=== PATIENT | male | born 1985 | race Caucasian/White ===

== ENCOUNTER 2016-10-22 10:19 | Emergency (ER) | payer OTHER ==
[2016-10-22 10:24] VITALS: TEMP 97.8
[2016-10-22] MEDS ORDERED: AMOXIC-POT CLAV 875-125MG 1 EACH TAB PO STA (11:24)
[2016-10-22] MEDS ORDERED: predniSONE 20 MG TAB PO STA (11:24)
--- NOTE | 2016-10-22 11:24 | ED ---
General Adult HPI - General Chief complaint: ENT Stated complaint: poss strep throat Time Seen by Provider: 10/22/16 10:32 Source: patient, RN notes reviewed, old records reviewed Mode of arrival: ambulatory Limitations: no limitations - History of Present Illness Initial comments: This is a 31-year-old male the ER for evaluation. The patient is a for evaluation of sore throat. Patient has no medical history no travel history takes no medications. He states he has had fever for 2 days worsening sore throat. No other complaints no shortness of breath or chest pain. Patient is able to swallow and drink and eat. Patient states this pain tobacco of just getting worse, is help with Motrin but states he feels like the swelling is getting worse at this time. No other complaints - Related Data Home Medications Medication Instructions Recorded Confirmed HYDROcodone/APAP 7.5-325MG [[place] 1 tab PO TID 06/20/15 06/22/15 7.5-325] Stool [place] 1 tab PO DAILY PRN 06/20/15 06/20/15 Allergies Allergy/AdvReac Type Severity Reaction Status Date / Time No Known Allergies Allergy Verified 10/22/16 10:24 Review of Systems ROS Statement: Those systems with pertinent positive or pertinent negative responses have been documented in the HPI. ROS Other: All systems not noted in ROS Statement are negative. Past Medical History Past Medical History: GERD/Reflux Additional Past Medical History / Comment(s): See Dr Sharma H&P History of Any Multi-Drug Resistant Organisms: None Reported Past Surgical History: Hernia Repair, Orthopedic Surgery Additional Past Surgical History / Comment(s): loop recorder insertion and removal, rt knee arthroscopy, reconstructive surgery left foot and ankle Past Anesthesia/Blood Transfusion Reactions: No Reported Reaction Past Psychological History: No Psychological Hx Reported Smoking Status: Former smoker Past Alcohol Use History: Occasional Past Drug Use History: Marijuana - Past Family History Mother Family Medical History: No Reported History General Exam Limitations: no limitations General appearance: alert, in no apparent distress Head exam: Present: atraumatic, normocephalic, normal inspection Eye exam: Present: normal appearance, PERRL, EOMI. Absent: scleral icterus, conjunctival injection, periorbital swelling ENT exam: Present: normal exam, other (Bilateral tonsillar erythema, edema and exudates) Neck exam: Present: normal inspection. Absent: tenderness, meningismus, lymphadenopathy Respiratory exam: Present: normal lung sounds bilaterally. Absent: respiratory distress, wheezes, rales, rhonchi, stridor Cardiovascular Exam: Present: regular rate, normal rhythm, normal heart sounds. Absent: systolic murmur, diastolic murmur, rubs, gallop, clicks GI/Abdominal exam: Present: soft, normal bowel sounds. Absent: distended, tenderness, guarding, rebound, rigid Extremities exam: Present: normal inspection, full ROM, normal capillary refill. Absent: tenderness, pedal edema, joint swelling, calf tenderness Back exam: Present: normal inspection Neurological exam: Present: alert, oriented X3, CN II-XII intact Psychiatric exam: Present: normal affect, normal mood Skin exam: Present: warm, dry, intact, normal color. Absent: rash Course Vital Signs 10/22/16 10:21 Temperature 97.8 F Pulse Rate 96 Respiratory 18 Rate Blood Pressure 146/84 O2 Sat by Pulse 98 Oximetry - Reevaluation(s) Reevaluation #1: 10/22/16 11:23 Patient no acute distress, able to swallow without difficulty Medical Decision Making - Medical Decision Making By year for evaluation strep throat, positive strep exam, positive fever sore throat. Positive exudates and pharyngitis. Patient will be discharged on appropriate antibiotics. Disposition Clinical Impression: Streptococcal sore throat Disposition: HOME SELF-CARE Condition: Good Instructions: Strep Throat (ED) Referrals: None,Stated [Primary Care Provider] - 1-2 days
[2016-10-22 11:40] VITALS: BP 140/63; PULSE 74; RESP 16
== END 2016-10-22 11:40 | disposition home or self-care (01) ==
LOC: EC 10:19
DX: J02.0 Streptococcal pharyngitis (principal); Z87.891 Personal history of nicotine dependence; Z79.891 Long term (current) use of opiate analgesic
CPT/HCPCS: 99283; J7512

== ENCOUNTER 2020-02-20 12:08 | Emergency (ER) | payer OTHER ==
[2020-02-20 12:12] VITALS: BP 189/85; PULSE 83; RESP 18; TEMP 98.5
--- NOTE | 2020-02-20 12:37 | ED ---
Recheck HPI - General Chief Complaint: Recheck/Abnormal Lab/Rx Stated Complaint: Vomiting, needs covid test Time Seen by Provider: 02/20/20 12:13 Source: patient, RN notes reviewed Mode of arrival: ambulatory Limitations: no limitations - History of Present Illness Initial Comments: Patient is a pleasant 34-year-old male presenting to the emergency department requesting test for coronavirus. Patient states he was chewing tobacco 2 nights ago and did not spit for an hour. Patient states following this she did vomit twice. Patient states he has had similar episodes previously with chewing tobacco. Patient states he feels fine other than that and has no other complaints. Patient has no nausea. No fever. No dyspnea or cough. No abdominal pain. Patient states he was sent by work to have testing and that's only reason that he is here. - Related Data Home Medications Medication Instructions Recorded Confirmed Ibuprofen [Motrin] 600 mg PO Q8HR PRN 10/22/16 10/22/16 Previous Rx's Medication Instructions Recorded Amoxicillin/Potassium Clav 1 tab PO Q12HR #20 tab 10/22/16 [Augmentin 875-125 Tablet] Allergies Allergy/AdvReac Type Severity Reaction Status Date / Time No Known Allergies Allergy Verified 02/20/20 12:10 Review of Systems ROS Statement: Those systems with pertinent positive or pertinent negative responses have been documented in the HPI. ROS Other: All systems not noted in ROS Statement are negative. Constitutional: Denies: fever, chills Eyes: Denies: eye pain ENT: Denies: ear pain Respiratory: Denies: cough, dyspnea Cardiovascular: Denies: chest pain Endocrine: Denies: fatigue Gastrointestinal: Reports: as per HPI. Denies: abdominal pain, nausea Genitourinary: Denies: dysuria Musculoskeletal: Denies: back pain Skin: Denies: rash Neurological: Denies: weakness Past Medical History Past Medical History: GERD/Reflux Additional Past Medical History / Comment(s): See Dr Sharma H&P History of Any Multi-Drug Resistant Organisms: None Reported Past Surgical History: Hernia Repair, Orthopedic Surgery Additional Past Surgical History / Comment(s): loop recorder insertion and removal, rt knee arthroscopy, reconstructive surgery left foot and ankle Past Anesthesia/Blood Transfusion Reactions: No Reported Reaction Past Psychological History: No Psychological Hx Reported Smoking Status: Never smoker Past Alcohol Use History: Occasional Past Drug Use History: Marijuana - Past Family History Mother Family Medical History: No Reported History General Exam Limitations: no limitations General appearance: alert, in no apparent distress Head exam: Present: normocephalic Eye exam: Present: normal appearance Neck exam: Present: normal inspection Respiratory exam: Present: normal lung sounds bilaterally Cardiovascular Exam: Present: regular rate, normal rhythm GI/Abdominal exam: Present: soft. Absent: tenderness Extremities exam: Present: normal inspection Neurological exam: Present: alert Psychiatric exam: Present: normal affect, normal mood Skin exam: Present: normal color. Absent: rash Course Vital Signs 02/20/20 12:10 Temperature 98.5 F Pulse Rate 83 Respiratory 18 Rate Blood Pressure 189/85 O2 Sat by Pulse 98 Oximetry Medical Decision Making - Medical Decision Making Patient is made aware that I agree with low risk of [place] virus. Patient is made aware that testing results will take 24-48 hours and that he should self quarantined until a time. Disposition Clinical Impression: Vomiting Disposition: HOME SELF-CARE Condition: Stable Instructions (If sedation given, give patient instructions): Acute Nausea and Vomiting (ED) Additional Instructions: Test results will be available in approximately 24-48 hours. Please self quarantined until results are available. Return for fevers, difficulty breathing, uncontrolled vomiting or abdominal pain, worsening symptoms or other concerns. Is patient prescribed a controlled substance at d/c from ED?: No Referrals: Jacquelin Connors MD [REFERRING] - 1-2 days Time of Disposition: 12:36
== END 2020-02-20 12:41 | disposition home or self-care (01) ==
LOC: EC 12:08
DX: R11.10 Vomiting, unspecified (principal); Z20.828 Contact with and (suspected) exposure to other viral communicable diseases
CPT/HCPCS: 99283; U0003

== ENCOUNTER 2023-07-22 12:40 | Emergency (ER) | payer OTHER ==
[2023-07-22] MEDS ORDERED: KETOROLAC 15 MG/ML 1 ML VIAL IM STA (13:13)
[2023-07-22] MEDS ORDERED: LIDOCAINE 4% PATCH TOPICAL ONE (13:14)
--- NOTE | 2023-07-22 13:14 | ED ---
Extremity Problem HPI - General Chief complaint: Extremity Problem,Nontraumatic Stated complaint: Right Knee Pain Time Seen by Provider: 07/22/23 13:10 Source: patient Mode of arrival: ambulatory Limitations: no limitations - History of Present Illness Initial comments: The patient is a gestational gentleman is otherwise presents emergency room complaints of pain as well as right knee. Patient stateshe injured his back 10 years ago that required surgery. He states that every once in a while if he moves or steps abnormally because his pain swelling and popping and catching of his knee. States that last happened about a year ago and after a week, it Finally went away. He has not seen an asset protection specialist in 10 years. He denies any IV drug use. Denies any fevers. Pain is worse with certain movements and feels as though its clicking. MD Complaint: extremity pain - Related Data Home Medications Medication Instructions Recorded Confirmed Ibuprofen [Motrin] 600 mg PO Q8HR PRN 10/22/16 10/22/16 Previous Rx's Medication Instructions Recorded Amoxicillin/Potassium Clav 1 tab PO Q12HR #20 tab 10/22/16 [Augmentin 875-125 Tablet] HYDROcodone/APAP 5-325MG [[place] 1 tab PO Q6HR PRN 3 Days #12 tab 07/22/23 5-325] Naproxen [Naprosyn] 375 mg PO Q12HR 14 Days #28 tablet 07/22/23 Allergies Allergy/AdvReac Type Severity Reaction Status Date / Time morphine Allergy Rash/Hives Verified 07/22/23 12:42 Review of Systems ROS Statement: Those systems with pertinent positive or pertinent negative responses have been documented in the HPI. ROS Other: All systems not noted in ROS Statement are negative. Past Medical History Past Medical History: GERD/Reflux Additional Past Medical History / Comment(s): See Dr Sharma H&P History of Any Multi-Drug Resistant Organisms: None Reported Past Surgical History: Hernia Repair, Orthopedic Surgery Additional Past Surgical History / Comment(s): loop recorder insertion and removal, rt knee arthroscopy, reconstructive surgery left foot and ankle Past Anesthesia/Blood Transfusion Reactions: No Reported Reaction Past Psychological History: No Psychological Hx Reported Smoking Status: Never smoker Past Alcohol Use History: Occasional Past Drug Use History: Marijuana - Past Family History Mother Family Medical History: No Reported History General Exam Limitations: no limitations General appearance: alert, in no apparent distress Eye exam: Present: PERRL Extremities exam: Present: full ROM, tenderness, joint swelling, other (pain over the anterior right knee. suprapatellar effusion. no erythema or warmth. no signs of a septic joint or compartment syndrome. no laxity of the ligaments.) Back exam: Present: full ROM Neurological exam: Present: alert, oriented X3, CN II-XII intact Psychiatric exam: Present: normal affect, normal mood Skin exam: Present: warm, dry, intact, normal color Course Vital Signs 07/22/23 07/22/23 12:42 16:00 Temperature 98 F Pulse Rate 89 86 Respiratory 16 18 Rate Blood Pressure 167/102 150/86 O2 Sat by Pulse 100 Oximetry - Reevaluation(s) Reevaluation #1: 07/22/23 17:07 patient was given toradol in the ed because he drove to the emergency room. Discussed imaging results which showed a possible fracture seen on the xray. A CT of the knee was ordered which showed no fracture, just the small effusion. i discussed management of this with the patient including the rest, ice elevation and compression. i discussed follow up with ortho for outpatient MRI for possible meniscus injury. he understands and agrees to treatment and discharge plan. he understands he is not to drive while taking pain medication. I discussed symptoms, workup and dispo with attending ED Physician, Dr Patrick today. Medical Decision Making - Medical Decision Making Was pt. sent in by a medical professional or institution (, PA, LUMBER PILER OPERATOR, urgent care, hospital, or [facility]...) When possible be specific @ -[No] Did you speak to anyone other than the patient for history (EMS, parent, family, police, friend...)? What history was obtained from this source @ -[No] Did you review nursing and triage notes (agree or disagree)? Why? @ -[I reviewed and agree with nursing and triage notes] Were old charts reviewed (outside hosp., previous admission, EMS record, old EKG, old radiological studies, urgent care reports/EKG's, [facility] records)? Report findings @ -[No old charts were reviewed] Differential Diagnosis (chest pain, altered mental status, abdominal pain women, abdominal pain men, vaginal bleeding, weakness, fever, dyspnea, syncope, headache, dizziness, GI bleed, back pain, seizure, CVA, palpatations, mental health, musculoskeletal)? @ -Sprain right knee, patellar dislocation, meniscus injury, ligamentous injury EKG interpreted by me (3pts min.). @ -[As above] X-rays interpreted by me (1pt min.). @ -. X-rays negative for any dislocation however there is a small effusion seen and a questionable tibial plateau fracture. Further imaging will be done to evaluate CT interpreted by me (1pt min.). @ -CT of the knee is negative for any tibial plateau fracture there is a small suprapatellar effusion seen. No other acute changes U/S interpreted by me (1pt. min.). @ -[None done] What testing was considered but not performed or refused? (CT, X-rays, U/S, labs)? Why? @ -[None] What meds were considered but not given or refused? Why? @ -[narcotic pain medication as patient is driving Did you discuss the management of the patient with other professionals (professionals i.e. , PA, LUMBER PILER OPERATOR, lab, RT, psych nurse, director of social work, greenhouse laborer, teacher, human resources officer, counter caser)? Give summary @ -[No] Was smoking cessation discussed for >3mins.? @ -[No] Was critical care preformed (if so, how long)? @ -[No] Were there social determinants of health that impacted care today? How? (Homelessness, low income, unemployed, alcoholism, drug addiction, transportation, low edu. Level, literacy, decrease access to med. care, group home, rehab)? @ -[No] Was there de-escalation of care discussed even if they declined (Discuss DNR or withdrawal of care, Hospice)? DNR status @ -[No] What co-morbidities impacted this encounter? (DM, HTN, Smoking, COPD, CAD, Cancer, CVA, ARF, Chemo, Hep., AIDS, mental health diagnosis, sleep apnea, morbid obesity)? @ -[None] Was patient admitted / discharged? Hospital course, mention meds given and route, prescriptions, significant lab abnormalities, going to OR and other pertinent info. @ -[the patient is stable to follow up as an outpatient with asset protection specialist. i discussed management including ice, compression and pain meds as needed. he understands he is not to drive while taking pain medication. Undiagnosed new problem with uncertain prognosis? @ -[No] Drug Therapy requiring intensive monitoring for toxicity (Heparin, Nitro, Insulin, Cardizem)? @ -[No] Were any procedures done? @ -[No] Diagnosis/symptom? @ -Right knee pain, suspected Meniscus injury of the right knee Acute, or Chronic, or Acute on Chronic? @ -[Acute Uncomplicated (without systemic symptoms) or Complicated (systemic symptoms)? @ -[default] Side effects of treatment? @ -[No] Exacerbation, Progression, or Severe Exacerbation? @ -[No] Poses a threat to life or bodily function? How? (Chest pain, [place], [place], pneumonia, PE, COPD, DKA, ARF, appy, cholecystitis, CVA, Diverticulitis, Homicidal, Suicidal, threat to staff... and all critical care pts) @ -[No] - Radiology Data Radiology results: report reviewed, image reviewed Disposition Clinical Impression: Right knee pain, Injury of meniscus of right knee Disposition: HOME SELF-CARE Condition: Good Instructions (If sedation given, give patient instructions): Meniscus Tear (ED), Knee Pain (ED), Swollen Knee Joint (ED) Additional Instructions: DO NOT DRIVE OR WORK WHILE TAKING PAIN MEDICATION REST, ICE AND ELEVATE THE KNEE. Prescriptions: Naproxen [Naprosyn] 375 mg PO Q12HR 14 Days #28 tablet HYDROcodone/APAP 5-325MG [[place] 5-325] 1 tab PO Q6HR PRN 3 Days #12 tab PRN Reason: Pain Is patient prescribed a controlled substance at d/c from ED?: Yes When asked, does pt state using other controlled substances?: No If prescribed controlled substance>3 days was MAPS reviewed?: Prescribed <3 Days If opioid is for acute pain is fill amount 7 days or less?: No Referrals: None,Stated [Primary Care Provider] - 1-2 days Time of Disposition: 17:16
--- NOTE | 2023-07-22 13:37 | XR ---
EXAMINATION TYPE: XR knee complete RT DATE OF EXAM: 07/22/2023 COMPARISON: NONE HISTORY: 38-year-old male pain and swelling after fall TECHNIQUE: 3 views FINDINGS: Prepatellar soft tissue swelling. No sizable joint effusion seen. Subtle lucency along the subchondral bone of the medial tibial plateau may be projectional artifact. Only seen on the oblique view. Minimal degenerative spurring medial compartment. No acute fracture, subluxation, dislocation o therwise seen. IMPRESSION: Prepatellar soft tissue swelling. Questionable subtle lucency medial tibial plateau. Unable to entire ly exclude a nondisplaced subchondral fracture of the medial tibial plateau versus projection artifac t.
--- NOTE | 2023-07-22 16:53 | CT ---
EXAMINATION TYPE: CT knee RT wo con DATE OF EXAM: 07/22/2023 COMPARISON: 07/22/2023 plain film HISTORY: EVALUATE FOR POSSIBLE FRACTURE. RT KNEE PAIN AFTER FALL CT DLP: 96.8 mGycm Automated exposure control for dose reduction was used. Contrast: None Technique: Axial images 3 mm thick sections. Reconstructed images in the coronal and sagittal planes. 3-D reconstructed images are reviewed. FINDINGS: No acute fractures are identified. No suspicious abnormality along the medial tibial plateau to corre late with the plain film findings is evident. There are couple of punctate calcifications within the posterior joint space. There is a small joint effusion present. Some increased soft tissue stranding is along the anterior l ateral suprapatellar region. Correlate with location of the patient's pain. Follow-up can be performed as clinically indicated. IMPRESSION: 1. NO DEFINITE ACUTE OSSEOUS ABNORMALITY TO SUGGEST UNDERLYING TIBIAL PLATEAU FRACTURE TO CORRELATE W ITH PLAIN FILM FINDINGS. 2. SMALL JOINT EFFUSION.
[2023-07-22 17:09] VITALS: BP 168/92; PULSE 80; RESP 18; TEMP 98.1
== END 2023-07-22 17:53 | disposition home or self-care (01) ==
LOC: EC 12:40
DX: S83.241A Other tear of medial meniscus, current injury, right knee, initial encounter (principal); F12.90 Cannabis use, unspecified, uncomplicated; Z88.5 Allergy status to narcotic agent; X58.XXXA Exposure to other specified factors, initial encounter
CPT/HCPCS: 73562; 73700; 99284; 96372; J1885

== ENCOUNTER 2024-03-23 09:03 | Emergency (ER) | payer SELFPAY ==
[2024-03-23 09:09] VITALS: RESP 18; TEMP 98
--- NOTE | 2024-03-23 09:12 | ED ---
Fall HPI - General Chief Complaint: Fall Stated Complaint: L Shoulder Injury Time Seen by Provider: 03/23/24 09:11 Source: patient, RN notes reviewed Mode of arrival: ambulatory - History of Present Illness Initial Comments: 39-year-old male presented to the ER with a chief complaint of a fall. Patient states he fell approximately 15 feet from his tree stand around 4 pm yesterday. He report he landed on his left shoulder and has been experiencing pain especially with motion since. He reports mild paresthesias to hand. Denies any limited range of motion. No neck pain. He denies any head injury, loss of consciousness or blood thinner use. Denies any rib pain, shortness of breath, chest pain, hip pain or other complaints. - Related Data Home Medications Medication Instructions Recorded Confirmed Ibuprofen [Motrin] 600 mg PO Q8HR PRN 10/22/16 10/22/16 Previous Rx's Medication Instructions Recorded Amoxicillin/Potassium Clav 1 tab PO Q12HR #20 tab 10/22/16 [Augmentin 875-125 Tablet] HYDROcodone/APAP 5-325MG [[place] 1 tab PO Q6HR PRN 3 Days #12 tab 07/22/23 5-325] Naproxen [Naprosyn] 375 mg PO Q12HR 14 Days #28 tablet 07/22/23 Cyclobenzaprine [Flexeril] 10 mg PO TID PRN #15 tab 03/23/24 Ibuprofen [Motrin] 600 mg PO Q8HR PRN #30 tab 03/23/24 Allergies Allergy/AdvReac Type Severity Reaction Status Date / Time morphine Allergy Rash/Hives Verified 03/23/24 09:09 Review of Systems ROS Statement: Those systems with pertinent positive or pertinent negative responses have been documented in the HPI. ROS Other: All systems not noted in ROS Statement are negative. Past Medical History Past Medical History: GERD/Reflux Additional Past Medical History / Comment(s): See Dr Sharma H&P History of Any Multi-Drug Resistant Organisms: None Reported Past Surgical History: Hernia Repair, Orthopedic Surgery Additional Past Surgical History / Comment(s): loop recorder insertion and removal, rt knee arthroscopy, reconstructive surgery left foot and ankle Past Anesthesia/Blood Transfusion Reactions: No Reported Reaction Past Psychological History: No Psychological Hx Reported Smoking Status: Never smoker Past Alcohol Use History: Occasional Past Drug Use History: Marijuana - Past Family History Mother Family Medical History: No Reported History General Exam - General Exam Comments Initial Comments: Visual Physical Exam Vital signs reviewed General: Well-appearing, nontoxic, no acute distress. Head: Normocephalic, atraumatic Eyes: PERRLA, EOMI ENT: Airway patent Chest: Nonlabored breathing Skin: No visual rash, normal skin tone Neuro: Alert and oriented 3 Musculoskeletal: No gross abnormalities Limitations: no limitations General appearance: alert, in no apparent distress Head exam: Present: atraumatic, normocephalic, normal inspection Neck exam: Present: normal inspection. Absent: tenderness, meningismus, lymphadenopathy Respiratory exam: Present: normal lung sounds bilaterally. Absent: respiratory distress, wheezes, rales, rhonchi, stridor Cardiovascular Exam: Present: regular rate, normal rhythm, normal heart sounds. Absent: systolic murmur, diastolic murmur, rubs, gallop, clicks Extremities exam: Present: tenderness (Left trapezius muscle. No overlying skin changes. Patient has full range of motion of shoulder. 2+ left radial pulse.) Course Vital Signs 03/23/24 03/23/24 03/23/24 09:06 10:01 10:52 Temperature 98 F 98 F Pulse Rate 56 L 62 Respiratory 18 18 18 Rate Blood Pressure 176/83 170/80 O2 Sat by Pulse 97 97 Oximetry Medical Decision Making - Medical Decision Making I performed the quick note portion of this chart. Electronically signed by Bea Walker PA-C Was pt. sent in by a medical professional or institution (DARIELA Sawyer, APPLIANCE INSTALLER, urgent care, hospital, or long-term...) When possible be specific @ -No Did you speak to anyone other than the patient for history (EMS, parent, family, police, friend...)? What history was obtained from this source @ -No Did you review nursing and triage notes (agree or disagree)? Why? @ -I reviewed and agree with nursing and triage notes Were old charts reviewed (outside hosp., previous admission, EMS record, old EKG, old radiological studies, urgent care reports/EKG's, long-term records)? Report findings @ -No old charts were reviewed Differential Diagnosis (chest pain, altered mental status, abdominal pain women, abdominal pain men, vaginal bleeding, weakness, fever, dyspnea, syncope, headache, dizziness, GI bleed, back pain, seizure, CVA, palpatations, mental health, musculoskeletal)? @ -Differential Musculoskeletal: Muscular strain, contusion, ligament sprain, fracture, arthritis, septic arthritis, bursitis, cellulitis, muscle spasm, nerve compression, DVT, arterial occlusion, herpes zoster, electrolyte abnormality, tumor.... This is not meant to be in all inclusive list EKG interpreted by me (3pts min.). @ -None done X-rays interpreted by me (1pt min.). @ -Left shoulder x-rays interpreted me negative for acute osseous process. CT interpreted by me (1pt min.). @ -None done U/S interpreted by me (1pt. min.). @ -None done What testing was considered but not performed or refused? (CT, X-rays, U/S, labs)? Why? @ -None What meds were considered but not given or refused? Why? @ -None Did you discuss the management of the patient with other professionals (professionals i.e. , PA, APPLIANCE INSTALLER, lab, RT, psych nurse, executive secretary social welfare, commissioning engineer, teacher, classification officer, heel caser)? Give summary @ -No Was smoking cessation discussed for >3mins.? @ -No Was critical care preformed (if so, how long)? @ -No Were there social determinants of health that impacted care today? How? (Homelessness, low income, unemployed, alcoholism, drug addiction, transportation, low edu. Level, literacy, decrease access to med. care, fci, rehab)? @ -No Was there de-escalation of care discussed even if they declined (Discuss DNR or withdrawal of care, Hospice)? DNR status @ -No What co-morbidities impacted this encounter? (DM, HTN, Smoking, COPD, CAD, Cancer, CVA, ARF, Chemo, Hep., AIDS, mental health diagnosis, sleep apnea, morbid obesity)? @ -None Was patient admitted / discharged? Hospital course, mention meds given and route, prescriptions, significant lab abnormalities, going to OR and other pertinent info. @ -Discharge. 39-year-old male presented to the ER with a chief complaint of a fall. History and physical exam completed. Vitals within normal limits. Patient in no signs of acute distress. There is tenderness to left trapezius muscle. Bilateral upper and lower extremities neuro vastly intact. Patient has full active range of motion with pain. X-rays obtained negative for acute process. Patient will be started on ibuprofen and Flexeril as pain is believed to be musculoskeletal in nature as pain is worse with palpation and movement. Advise close follow-up with PCP. Strict return parameters discussed. Patient discharged in stable condition. Patient expressed understanding and agreed with care plan. Case discussed with ED attending, Dr. Frost. Undiagnosed new problem with uncertain prognosis? @ -No Drug Therapy requiring intensive monitoring for toxicity (Heparin, Nitro, Insulin, Cardizem)? @ -No Were any procedures done? @ -No Diagnosis/symptom? @ -Shoulder injury Acute, or Chronic, or Acute on Chronic? @ -Acute Uncomplicated (without systemic symptoms) or Complicated (systemic symptoms)? @ -Uncomplicated Side effects of treatment? @ -No Exacerbation, Progression, or Severe Exacerbation? @ -No Poses a threat to life or bodily function? How? (Chest pain, [place], [place], pneumonia, PE, COPD, DKA, ARF, appy, cholecystitis, CVA, Diverticulitis, Homicidal, Suicidal, threat to staff... and all critical care pts) @ -No - Radiology Data Radiology results: report reviewed, image reviewed Disposition Clinical Impression: Shoulder injury Disposition: HOME SELF-CARE Condition: Stable Instructions (If sedation given, give patient instructions): Shoulder Sprain (ED) Additional Instructions: Follow-up with PCP. Return to the ER for any new or worsening concerns. Be aware Flexeril can make you drowsy and sleepy Prescriptions: Cyclobenzaprine [Flexeril] 10 mg PO TID PRN #15 tab PRN Reason: Muscle Spasm Ibuprofen [Motrin] 600 mg PO Q8HR PRN #30 tab PRN Reason: Pain Is patient prescribed a controlled substance at d/c from ED?: No Referrals: None,Stated [Primary Care Provider] - 1-2 days Forms: Area PCPs Time of Disposition: 10:41
--- NOTE | 2024-03-23 09:54 | XR ---
EXAMINATION TYPE: XR shoulder complete LT DATE OF EXAM: 03/23/2024 COMPARISON: NONE HISTORY: Pain TECHNIQUE: Shoulder examined in 3 projections. FINDINGS: The humeral head articulates with the glenoid. The acromio-clavicular junction is normal. No acute fractures or dislocations are evident. A follow up study can be performed 7-10 days from acute trauma for continued pain. MRI can be perfor med if soft tissue evaluation would be of benefit. IMPRESSION: 1. No acute osseous shoulder abnormality. [facility], , 03/23/2024 9:52 AM
[2024-03-23 10:54] VITALS: BP 170/80; PULSE 62
== END 2024-03-23 13:08 | disposition home or self-care (01) ==
LOC: EC 09:03
CPT/HCPCS: 99283

== ENCOUNTER 2024-10-19 08:33 | Emergency (ER) | payer BC ==
--- NOTE | 2024-10-19 09:32 | ED ---
Abdominal Pain HPI - General Chief Complaint: Abdominal Pain Stated Complaint: abd pain Time Seen by Provider: 10/19/24 08:35 Source: patient, RN notes reviewed Mode of arrival: ambulatory Limitations: no limitations - History of Present Illness Initial Comments: 39-year-old male presents emergency department complaint of abdominal pain. Patient states been an increase in abdominal pain for last several weeks. Patient states he feels very bloated, states it is worse after having a large bowel movement. He did have some bleeding at 1 point no current bleeding rectally. Patient denies any dysuria hematuria he does admit to 1 prior abdominal hernia repair when he was 7 years old no recent abdominal surgeries no chest pain no shortness of breath no fevers or chills. - Related Data Home Medications Medication Instructions Recorded Confirmed Ibuprofen [Motrin] 600 mg PO Q8HR PRN 10/22/16 10/22/16 Previous Rx's Medication Instructions Recorded Amoxicillin/Potassium Clav 1 tab PO Q12HR #20 tab 10/22/16 [Augmentin 875-125 Tablet] HYDROcodone/APAP 5-325MG [[place] 1 tab PO Q6HR PRN 3 Days #12 tab 07/22/23 5-325] Naproxen [Naprosyn] 375 mg PO Q12HR 14 Days #28 tablet 07/22/23 Cyclobenzaprine [Flexeril] 10 mg PO TID PRN #15 tab 03/23/24 Ibuprofen [Motrin] 600 mg PO Q8HR PRN #30 tab 03/23/24 Allergies Allergy/AdvReac Type Severity Reaction Status Date / Time morphine Allergy Rash/Hives Verified 10/19/24 08:43 Review of Systems ROS Statement: Those systems with pertinent positive or pertinent negative responses have been documented in the HPI. ROS Other: All systems not noted in ROS Statement are negative. Past Medical History Past Medical History: GERD/Reflux Additional Past Medical History / Comment(s): See Dr Sharma H&P History of Any Multi-Drug Resistant Organisms: None Reported Past Surgical History: Hernia Repair, Orthopedic Surgery Additional Past Surgical History / Comment(s): loop recorder insertion and removal, rt knee arthroscopy, reconstructive surgery left foot and ankle Past Anesthesia/Blood Transfusion Reactions: No Reported Reaction Past Psychological History: No Psychological Hx Reported Smoking Status: Never smoker Past Alcohol Use History: Occasional Past Drug Use History: Marijuana - Past Family History Mother Family Medical History: No Reported History General Exam Limitations: no limitations General appearance: alert, in no apparent distress Head exam: Present: atraumatic, normocephalic, normal inspection Respiratory exam: Present: normal lung sounds bilaterally. Absent: respiratory distress, wheezes, rales, rhonchi, stridor Cardiovascular Exam: Present: regular rate, normal rhythm, normal heart sounds. Absent: systolic murmur, diastolic murmur, rubs, gallop, clicks GI/Abdominal exam: Present: soft, tenderness, normal bowel sounds. Absent: distended, guarding, rebound, rigid Back exam: Absent: CVA tenderness (R), CVA tenderness (L) Neurological exam: Present: oriented X3 Course Vital Signs 10/19/24 10/19/24 10/19/24 08:41 10:21 11:00 Temperature 97.8 F Pulse Rate 85 74 80 Respiratory 20 18 18 Rate Blood Pressure 144/96 135/91 131/89 O2 Sat by Pulse 99 99 98 Oximetry 10/19/24 12:00 Temperature 98.0 F Pulse Rate 71 Respiratory 18 Rate Blood Pressure 135/88 O2 Sat by Pulse 99 Oximetry Medical Decision Making - Medical Decision Making Was pt. sent in by a medical professional or institution (DARIELA Sawyer, REMARKETING MANAGER, urgent care, hospital, or longterm...) When possible be specific @ -No Did you speak to anyone other than the patient for history (EMS, parent, family, police, friend...)? What history was obtained from this source @ -No Did you review nursing and triage notes (agree or disagree)? Why? @ -I reviewed and agree with nursing and triage notes Were old charts reviewed (outside hosp., previous admission, EMS record, old EKG, old radiological studies, urgent care reports/EKG's, longterm records)? Report findings @ -No old charts were reviewed Differential Diagnosis (chest pain, altered mental status, abdominal pain women, abdominal pain men, vaginal bleeding, weakness, fever, dyspnea, syncope, headache, dizziness, GI bleed, back pain, seizure, CVA, palpatations, mental health, musculoskeletal)? @ -Differential Abdominal Pain Men: Appendicitis, cholecystitis, diverticulosis, ischemic bowel, pancreatitis, hepatitis, UTI, gastroenteritis, AAA, incarcerated hernia, bowel obstruction, constipation, inflammatory bowel, hepatitis, peptic ulcer disease, splenic infarction, perforated viscus, testicular torsion, this is not meant to be an all-inclusive list EKG interpreted by me (3pts min.). @ -[None X-rays interpreted by me (1pt min.). @ -None done CT interpreted by me (1pt min.). @ -CT abdomen and pelvis showing evidence of enlarged gallbladder no other acute process U/S interpreted by me (1pt. min.). @ -Ultrasound gallbladder showing enlarged gallbladder without direction or cholelithiasis What testing was considered but not performed or refused? (CT, X-rays, U/S, labs)? Why? @ -None What meds were considered but not given or refused? Why? @ -None Did you discuss the management of the patient with other professionals (professionals i.e. , PA, REMARKETING MANAGER, lab, RT, psych nurse, psychologist social, trash truck driver, teacher, program officer, case repairer)? Give summary @ -No Was smoking cessation discussed for >3mins.? @ -No Was critical care preformed (if so, how long)? @ -No Were there social determinants of health that impacted care today? How? (Homelessness, low income, unemployed, alcoholism, drug addiction, transportation, low edu. Level, literacy, decrease access to med. care, halfway, rehab)? @ -No Was there de-escalation of care discussed even if they declined (Discuss DNR or withdrawal of care, Hospice)? DNR status @ -No What co-morbidities impacted this encounter? (DM, HTN, Smoking, COPD, CAD, Cancer, CVA, ARF, Chemo, Hep., AIDS, mental health diagnosis, sleep apnea, morb id obesity)? @ -None Was patient admitted / discharged? Hospital course, mention meds given and rout e, prescriptions, significant lab abnormalities, going to OR and other pertinent info. @ -Discharge patient has enlarged gallbladder no evidence of acute infection at this time known cholelithiasis. Patient will follow-up with on-call surgery return parameters are discussed. Undiagnosed new problem with uncertain prognosis? @ -No Drug Therapy requiring intensive monitoring for toxicity (Heparin, Nitro, Insulin, Cardizem)? @ -No Were any procedures done? @ -No Diagnosis/symptom? @ -Abdominal pain, gallbladder disease Acute, or Chronic, or Acute on Chronic? @ -Acute Uncomplicated (without systemic symptoms) or Complicated (systemic symptoms)? @ -Complicated Side effects of treatment? @ -No Exacerbation, Progression, or Severe Exacerbation? @ -No Poses a threat to life or bodily function? How? (Chest pain, [place], [place], pneumonia, PE, COPD, DKA, ARF, appy, cholecystitis, CVA, Diverticulitis, Homicidal, Suicidal, threat to staff... and all critical care pts) @ -No - Lab Data Result diagrams: 10/19/24 09:30 10/19/24 09:30 Lab Results 10/19/24 10/19/24 10/19/24 Range/Units 09:30 09: 09:30 WBC 8.42 (4.50-10.00) 10*3/uL RBC 5.24 (4.40-5.60) 10*6/uL Hgb 16.0 (13.0-17.0) g/dL Hct 46.1 (39.6-50.0) % MCV 88.0 (80.0-97.0) fL MCH 30.5 (27.0-32.0) pg MCHC 34.7 (32.0-37.0) g/dL Plt Count 336 (140-440) 10*3/uL MPV 9.4 L (9.5-12.2) fL Immature Gran % (Auto) 0.5 % Neutrophils % 65.1 % Lymphocytes % 22.9 % Monocytes % 9.0 % Eosinophils % 1.9 % Basophils % 0.6 % Immature Gran # 0.04 (0.00-0.04) 10*3/uL Neutrophils # 5.48 (1.80-7.70) 10*3/uL Lymphocytes # 1.93 (0.90-5.00) 10*3/uL Monocytes # 0.76 (0.20-1.00) 10*3/uL Eosinophils # 0.16 (0.04-0.35) 10*3/uL Basophils # 0.05 (0.00-0.10) 10*3/uL Sodium 136 L (137-145) mmol/L Potassium 5.5 H (3.5-5.1) mmol/L Chloride 106 (98-107) mmol/L Carbon Dioxide 23 (22-30) mmol/L Anion Gap 7 mmol/L BUN 12 (9-20) mg/dL Creatinine 0.68 (0.66-1.25) mg/dL Est GFR (CKD-EPI)AfAm >90 (>60 ml/min/1.73 sqM) Est GFR (CKD-EPI)NonAf >90 (>60 ml/min/1.73 sqM) Glucose 108 H (74-99) mg/dL Plasma Lactic Acid Angelo (0.7-2.0) mmol/L Calcium 9.7 (8.4-10.2) mg/dL Total Bilirubin 0.7 (0.2-1.3) mg/dL AST 57 (17-59) U/L ALT 97 H (4-49) U/L Alkaline Phosphatase 97 (38-126) U/L Total Protein 7.5 (6.3-8.2) g/dL Albumin 4.6 (3.5-5.0) g/dL Lipase 92 (23-300) U/L Urine Color Colorless Urine Appearance Clear (Clear) Urine pH 5.5 (5.0-8.0) Ur Specific [place] 1.029 (1.001-1.035) Urine Protein Negative (Negative) Urine Glucose (UA) Negative (Negative) Urine Ketones Negative (Negative) Urine Blood Negative (Negative) Urine Nitrite Negative (Negative) Urine Bilirubin Negative (Negative) Urine Urobilinogen <2.0 (<2.0) mg/dL Ur Leukocyte Esterase Negative (Negative) 10/19/24 Range/Units 09:30 WBC (4.50-10.00) 10*3/uL RBC (4.40-5.60) 10*6/uL Hgb (13.0-17.0) g/dL Hct (39.6-50.0) % MCV (80.0-97.0) fL MCH (27.0-32.0) pg MCHC (32.0-37.0) g/dL Plt Count (140-440) 10*3/uL MPV (9.5-12.2) fL Immature Gran % (Auto) % Neutrophils % % Lymphocytes % % Monocytes % % Eosinophils % % Basophils % % Immature Gran # (0.00-0.04) 10*3/uL Neutrophils # (1.80-7.70) 10*3/uL Lymphocytes # (0.90-5.00) 10*3/uL Monocytes # (0.20-1.00) 10*3/uL Eosinophils # (0.04-0.35) 10*3/uL Basophils # (0.00-0.10) 10*3/uL Sodium (137-145) mmol/L Potassium (3.5-5.1) mmol/L Chloride (98-107) mmol/L Carbon Dioxide (22-30) mmol/L Anion Gap mmol/L BUN (9-20) mg/dL Creatinine (0.66-1.25) mg/dL Est GFR (CKD-EPI)AfAm (>60 ml/min/1.73 sqM) Est GFR (CKD-EPI)NonAf (>60 ml/min/1.73 sqM) Glucose (74-99) mg/dL Plasma Lactic Acid Angelo 1.4 (0.7-2.0) mmol/L Calcium (8.4-10.2) mg/dL Total Bilirubin (0.2-1.3) mg/dL AST (17-59) U/L ALT (4-49) U/L Alkaline Phosphatase (38-126) U/L Total Protein (6.3-8.2) g/dL Albumin (3.5-5.0) g/dL Lipase (23-300) U/L Urine Color Urine Appearance (Clear) Urine pH (5.0-8.0) Ur Specific [place] (1.001-1.035) Urine Protein (Negative) Urine Glucose (UA) (Negative) Urine Ketones (Negative) Urine Blood (Negative) Urine Nitrite (Negative) Urine Bilirubin (Negative) Urine Urobilinogen (<2.0) mg/dL Ur Leukocyte Esterase (Negative) Disposition Clinical Impression: Abdominal pain, Enlarged gallbladder Disposition: HOME SELF-CARE Condition: Stable Instructions (If sedation given, give patient instructions): Abdominal Pain (ED) Additional Instructions: Please return to the Emergency Department if symptoms worsen or any other concerns. Is patient prescribed a controlled substance at d/c from ED?: No Referrals: Berhane Blackwell MD [STAFF PHYSICIAN] - 1-2 days Time of Disposition: 12:21
[2024-10-19] MEDS: SODIUM CHLORIDE 0.9% 1,000 ML IV ONE (09:47)
[2024-10-19] MEDS: KETOROLAC 15 MG/ML 1 ML VIAL IVP STA (09:47)
[2024-10-19] MEDS: PANTOPRAZOLE 40 MG/10 ML VIAL IVP STA (09:50)
[2024-10-19 10:04] LABS: Basophils # (A) 0.05 10*3/uL (0.00-0.10); Basophils % (A) 0.6 %; Eosinophils # (A) 0.16 10*3/uL (0.04-0.35); Eosinophils % (A) 1.9 %; HCT 46.1 % (39.6-50.0); Lymphocytes # (A) 1.93 10*3/uL (0.90-5.00); Lymphocytes % (A) 22.9 %; MCH 30.5 pg (27.0-32.0); MCHC 34.7 g/dL (32.0-37.0); Mean Platelet Volume 9.4 fL (9.5-12.2); Monocytes # (A) 0.76 10*3/uL (0.20-1.00); Neutrophils # (A) 5.48 10*3/uL (1.80-7.70); Neutrophils % (A) 65.1 %; Platelet Count 336 10*3/uL (140-440); RBC 5.24 10*6/uL (4.40-5.60); RDW 12.2 % (11.5-14.5); WBC 8.42 10*3/uL (4.50-10.00)
[2024-10-19 10:18] LABS: ALT 97 U/L (4-49); African American GFR (CKD) >90 (>60 ml/min/1.73 sqM); Anion Gap 7 mmol/L; Blood Urea Nitrogen 12 mg/dL (9-20); Calcium 9.7 mg/dL (8.4-10.2); Carbon Dioxide 23 mmol/L (22-30); Chloride 106 mmol/L (98-107); Glucose 108 mg/dL (74-99); Lipase 92 U/L (23-300); Non-African American GFR(CKD) >90 (>60 ml/min/1.73 sqM); Sodium 136 mmol/L (137-145); Total Bilirubin 0.7 mg/dL (0.2-1.3)
[2024-10-19 10:19] LABS: AST 57 U/L (17-59); Albumin 4.6 g/dL (3.5-5.0); Potassium 5.5 mmol/L (3.5-5.1); Total Protein 7.5 g/dL (6.3-8.2)
[2024-10-19 10:20] LABS: Alkaline Phosphatase 97 U/L (38-126)
[2024-10-19 10:27] LABS: Appearance,Urine Clear (Clear); Bilirubin,Urine Negative (Negative); Blood,Urine Negative (Negative); Color,Urine Colorless; Glucose,Urine (UA) Negative (Negative); Ketones,Urine Negative (Negative); Leukocyte Esterase,Urine Negative (Negative); Nitrite,Urine Negative (Negative); PH, Urine 5.5 (5.0-8.0); Protein,Urine Negative (Negative); Specific Gravity,Urine 1.029 (1.001-1.035); Urobilinogen,Urine <2.0 mg/dL (<2.0)
--- NOTE | 2024-10-19 10:36 | CT ---
EXAMINATION TYPE: CT abdomen pelvis w con DATE OF EXAM: 10/19/2024 10:09 AM COMPARISON: None CLINICAL INDICATION: Male, 39 years old with history of abdominal pain; Pt is having abd pain. Pt sta saige increase pain post bowel movement. TECHNIQUE: Axial CT abdomen pelvis w con;Sagittal and coronal reformats were created on a separate w orkstation. Contrast used:100 ml mL of Isovue 300 with IV Contrast, (none if empty) Oral contrast used: without Oral Contrast (none if empty) CT DLP: 1112.7 mGycm, Automated exposure control for dose reduction was used. FINDINGS: LOWER CHEST: The heart is mildly enlarged for size. ABDOMEN LIVER: Diffusely hypoattenuating parenchyma. GALLBLADDER AND BILE DUCTS: Mild hyperemia of the gallbladder wall with possible fundal wall thickeni ng. PANCREAS: Unremarkable. SPLEEN: Unremarkable. ADRENAL GLANDS: Unremarkable. KIDNEYS AND URETERS: No evidence of hydronephrosis or obstructing renal calculus. The ureters are unr emarkable. PELVIS BLADDER: No evidence for wall thickening or mass given limitations of exam. REPRODUCTIVE: Unremarkable. ABDOMEN & PELVIS STOMACH AND BOWEL: No evidence of bowel obstruction. The appendix is normal. PERITONEUM/RETROPERITONEUM: No evidence of pneumoperitoneum or free fluid. VASCULATURE: No evidence of aortic aneurysm. MUSCULOSKELETAL: No acute osseous abnormalities LYMPH NODES: No gross evidence for lymphadenopathy. SOFT TISSUE/ABDOMINAL WALL: Unremarkable IMPRESSION: 1. Mild hyperemia of the gallbladder wall with possible fundal wall thickening. Consider further jamey luation with right upper quadrant ultrasound of the gallbladder. 2. Hepatic steatosis. 3. Normal appendix no evidence for obstructive uropathy. [facility], , 10/19/2024 10:33 AM
[2024-10-19 10:39] VITALS: RESP 18
--- NOTE | 2024-10-19 11:29 | US ---
EXAMINATION TYPE: US gallbladder DATE OF EXAM: 10/19/2024 COMPARISON: CT: Today CLINICAL INDICATION: Male, 39 years old with history of pain; RUQ pain x months TECHNIQUE: Grayscale and color Doppler imaging of the right upper quadrant was performed. FINDINGS: EXAM MEASUREMENTS: Liver Length: 17.2 cm Gallbladder Wall: 0.33 cm CBD: 0.59 cm Right Kidney: 10.2 x 5.1 x 4.8 cm PROFESSOR OF BIOSTATISTICS NOTES: Pancreas: tail obscured by overlying bowel gas. Parts seen appear wnl Liver: heterogeneous with increased attenuation Gallbladder: wall appears thickened, no stones or sludge seen Evidence for sonographic Marti's sign: No CBD: wnl Right Kidney: wnl IMPRESSION: 1. Feeding gallbladder wall without evidence for gallstones. Correlate for signs and symptoms of cho lecystitis. Consider HIDA scan. 2. Hepatic steatosis. [facility], , 10/19/2024 11:26 AM
[2024-10-19 12:04] VITALS: BP 135/88; PULSE 71; TEMP 98
== END 2024-10-19 12:29 | disposition home or self-care (01) ==
LOC: EC 08:33
DX: K82.8 Other specified diseases of gallbladder (principal); Z88.5 Allergy status to narcotic agent
CPT/HCPCS: 36415; 80053; 83605; 83690; 85025; 81003; 76705; 74177; 99284; 96374; 96375; 96361; J1885; Q9967; J2470